=== PATIENT | male | born 1960 | race Caucasian/White ===

== ENCOUNTER 2023-07-02 11:03 | Emergency (ER) | payer OTHER ==
[2023-07-02] MEDS ORDERED: DIPH,PERTUS(ACELL)TETVAC-LF 0.5 ML VIAL IM ONE (12:02)
[2023-07-02] MEDS ORDERED: VANCOMYCIN IV PER PHARMACY 1 EACH MISC MISCELLANE PRN (12:03)
[2023-07-02] MEDS ORDERED: VANCOMYCIN 2,000 MG in SODIUM CHLORIDE 0.9% 500 ML 500 ML IVPB STA (12:06)
[2023-07-02 12:57] LABS: Basophils % (A) 0 %; Eosinophils # (A) 0.3 k/uL (0-0.7); Eosinophils % (A) 3 %; HCT 46.6 % (39.0-53.0); HGB 15.6 gm/dL (13.0-17.5); Lymphocytes # (A) 1.5 k/uL (1.0-4.8); Lymphocytes % (A) 19 %; MCH 30.4 pg (25.0-35.0); MCHC 33.6 g/dL (31.0-37.0); MCV 90.6 fL (80.0-100.0); Mean Platelet Volume 8.8; Monocytes # (A) 0.6 k/uL (0-1.0); Monocytes % (A) 8 %; Neutrophils # (A) 5.3 k/uL (1.3-7.7); Neutrophils % (A) 68 %; Platelet Count 246 k/uL (150-450); RBC 5.14 m/uL (4.30-5.90); WBC 7.7 k/uL (3.8-10.6)
[2023-07-02 12:58] VITALS: RESP 18
[2023-07-02 13:08] LABS: ALT 25 U/L (4-49); AST 27 U/L (17-59); African American GFR (CKD) >90 (>60 ml/min/1.73 sqM); Albumin 4.3 g/dL (3.5-5.0); Alkaline Phosphatase 96 U/L (38-126); Anion Gap 12 mmol/L; Blood Urea Nitrogen 20 mg/dL (9-20); Calcium 9.4 mg/dL (8.4-10.2); Carbon Dioxide 23 mmol/L (22-30); Chloride 106 mmol/L (98-107); Glucose 158 mg/dL (74-99); Non-African American GFR(CKD) >90 (>60 ml/min/1.73 sqM); Potassium 4.2 mmol/L (3.5-5.1); Sodium 141 mmol/L (137-145); Total Bilirubin 0.4 mg/dL (0.2-1.3); Total Protein 7.2 g/dL (6.3-8.2)
--- NOTE | 2023-07-02 14:21 | CT ---
EXAMINATION TYPE: CT abdomen pelvis w con CT DLP: 2670.40 mGycm, Automated exposure control for dose reduction was used. DATE OF EXAM: 07/02/2023 2:08 PM COMPARISON: None CLINICAL INDICATION:Male, 62 years old with history of eval groin infection, right; Evaluate groin in fection, right TECHNIQUE: Axial CT of the ;CT abdomen pelvis w con;Sagittal and coronal reformats were created on a separate workstation. Contrast used:100 ml mL of Isovue 300 with IV Contrast, (none if empty) Oral contrast used: without Oral Contrast (none if empty) FINDINGS: LOWER CHEST: coronary artery calcifications are mild ABDOMEN LIVER: Diffusely hypoattenuating parenchyma. GALLBLADDER AND BILE DUCTS: Unremarkable. PANCREAS: Unremarkable. SPLEEN: Unremarkable. ADRENAL GLANDS: Unremarkable. KIDNEYS AND URETERS: No evidence of hydronephrosis or renal calculus. The ureters are unremarkable. Indeterminate right renal lesion measuring 14 mm. PELVIS BLADDER: Unremarkable REPRODUCTIVE: Unremarkable. ABDOMEN & PELVIS STOMACH AND BOWEL: No evidence of bowel obstruction. PERITONEUM/RETROPERITONEUM: No evidence of pneumoperitoneum or free fluid. VASCULATURE: No evidence of aortic aneurysm. MUSCULOSKELETAL: No acute osseous abnormalities LYMPH NODES: No gross evidence for lymphadenopathy. SOFT TISSUE/ABDOMINAL WALL: Fat-containing left inguinal canal. There is phlegmonous change within th e right perineum/right scrotum. No subcutaneous gas visualized.. No definitive organizing fluid colle ction. IMPRESSION: 1. Phlegmonous change within the right perineum/right scrotum. No evidence for organizing fluid steve ection at this time. No subcutaneous gas. 2. Indeterminate right renal lesion measuring 14 mm. MRI renal mass protocol recommended for complet e evaluation. 3. Mild Hepatic steatosis
[2023-07-02 15:03] LABS: Appearance,Urine Clear (Clear); Color,Urine Yellow; Glucose,Urine (UA) 3+ (Negative); Protein,Urine Trace (Negative); Specific Gravity,Urine >1.030 (1.001-1.035)
[2023-07-02 15:04] LABS: Bilirubin,Urine Negative (Negative); Blood,Urine Negative (Negative); Ketones,Urine 1+ (Negative); Leukocyte Esterase,Urine Negative (Negative); Nitrite,Urine Negative (Negative); Urobilinogen,Urine <2.0 mg/dL (<2.0)
--- NOTE | 2023-07-02 15:39 | ED ---
General Adult HPI - General Source: patient, RN notes reviewed, old records reviewed Mode of arrival: ambulatory Limitations: no limitations <Kerwin Molina - Last Filed: 07/02/23 15:27> <Pancho Juárez - Last Filed: 07/02/23 16:57> - General Chief complaint: Skin/Abscess/Foreign Body Stated complaint: lump near groin area right side Time Seen by Provider: 07/02/23 11:26 - History of Present Illness Initial comments: Patient is a 62-year-old male with past medical history remarkable for kow-wzmekig-gnpfcyfrd diabetes, CAD, hypertension who presents emergency Department complaining of a sore located in the right groin. It is been draining a purulent discharge. Still some erythema around the site as well. Denies testicular pain. Denies any urethral discharge. His no other systemic signs of infection including denying abdominal pain, nausea, vomiting, fevers, chills, cough. His no other acute complaints at this time. Was sent by his PCP for further evaluation. (Kerwin Molina) - Related Data Home Medications Medication Instructions Recorded Confirmed Atorvastatin [Lipitor] 10 mg PO HS 07/02/23 07/02/23 Benazepril HCl [Lotensin] 40 mg PO DAILY 07/02/23 07/02/23 Dextroamphetamine Sulfate 10 mg PO TID 07/02/23 07/02/23 [Dextroamphetamine Sulfate ER] Omeprazole [PriLOSEC] 20 mg PO DAILY 07/02/23 07/02/23 amLODIPine [Norvasc] 10 mg PO DAILY 07/02/23 07/02/23 metFORMIN HCL [Glucophage] 1,000 mg PO BID 07/02/23 07/02/23 Allergies Allergy/AdvReac Type Severity Reaction Status Date / Time No Known Allergies Allergy Verified 07/02/23 13:46 Review of Systems ROS Other: All systems not noted in ROS Statement are negative. <Kerwin Molina - Last Filed: 07/02/23 15:27> ROS Other: All systems not noted in ROS Statement are negative. <Pancho Juárez - Last Filed: 07/02/23 16:57> ROS Statement: Those systems with pertinent positive or pertinent negative responses have been documented in the HPI. Review of Systems: CONST: Denies fever EYES: Denies blurry vision ENT: Denies nasal congestion C/V: Denies Chest pain RESP: Denies shortness of breath GI: Denies abdominal pain : Denies dysuria SKIN: Sore in right groin with some purulent discharge. MSK: Denies joint pain. NEURO: Denies headache (Kerwin Molina) Past Medical History Past Medical History: Diabetes Mellitus, GERD/Reflux, Hypertension History of Any Multi-Drug Resistant Organisms: None Reported Past Surgical History: Tonsillectomy Smoking Status: Never smoker Past Alcohol Use History: None Reported Past Drug Use History: None Reported <Kerwin Molina - Last Filed: 07/02/23 15:27> General Exam Limitations: no limitations <Kerwin Molina - Last Filed: 07/02/23 15:27> - General Exam Comments Initial Comments: General: Appears in no acute distress. HEAD: Normal with no signs of head trauma. EYES: PERRLA, EOMI, conjunctiva normal, no discharge. ENT: Hearing grossly intact, normal oropharynx. RESPIRATORY: Clear breath sounds bilaterally. No wheezes, rales, or rhonchi. C/V: Regular rate and rhythm. S1 and S2 auscultated, no edema, peripheral pulses 2+ and intact throughout ABD: Abd is soft, nontender, nondistended : Patient has induration along the right inguinal crease with an open wound with purulent discharge. No obvious fluctuance palpated. No testicular tenderness to palpation. No urethral discharge. No crepitus palpated. EXT: Normal range of motion, no obvious deformity SKIN: See above NEURO: Alert and oriented 4. (Kerwin Molina) Course Vital Signs 07/02/23 07/02/23 07/02/23 11:15 12:43 13:41 Temperature 97.9 F Pulse Rate 84 81 71 Respiratory 16 18 18 Rate Blood Pressure 134/82 124/84 112/65 O2 Sat by Pulse 94 L 96 94 L Oximetry 07/02/23 07/02/23 14:00 16:00 Temperature Pulse Rate 77 73 Respiratory 18 18 Rate Blood Pressure 118/76 143/99 O2 Sat by Pulse 96 99 Oximetry Medical Decision Making - Lab Data Result diagrams: 07/02/23 12:02 07/02/23 12:02 <Kerwin Molina - Last Filed: 07/02/23 15:27> - Lab Data Result diagrams: 07/02/23 12:02 07/02/23 12:02 <Pancho Juárez - Last Filed: 07/02/23 16:57> - Medical Decision Making Was pt. sent in by a medical professional or institution (JOHN Salomon, ETIOLOGIST, urgent care, hospital, or correction...) When possible be specific @ -No Did you speak to anyone other than the patient for history (EMS, parent, family, police, friend...)? What history was obtained from this source @ -No Did you review nursing and triage notes (agree or disagree)? Why? @ -I reviewed and agree with nursing and triage notes Were old charts reviewed (outside hosp., previous admission, EMS record, old E KG, old radiological studies, urgent care reports/EKG's, correction records)? Report findings @ -Charts reviewed. Differential Diagnosis (chest pain, altered mental status, abdominal pain women, abdominal pain men, vaginal bleeding, weakness, fever, dyspnea, syncope, headache, dizziness, GI bleed, back pain, seizure, CVA, palpatations, mental health, musculoskeletal)? @ -Cellulitis, abscess, necrotizing infection. This list is not all-inclusive. EKG interpreted by me (3pts min.). @ -None done X-rays interpreted by me (1pt min.). @ -None done CT interpreted by me (1pt min.). @ -CT head reveals phlegmonous changes of the right inguinal crease with extension into the right scrotum. U/S interpreted by me (1pt. min.). @ -None done What testing was considered but not performed or refused? (CT, X-rays, U/S, labs)? Why? @ -None What meds were considered but not given or refused? Why? @ -None Did you discuss the management of the patient with other professionals (professionals i.e. JOHN Salomon, ETIOLOGIST, lab, RT, psych nurse, social worker school, battery starter, teacher, press officer, case packer and sealer)? Give summary @ -Dr. Machuca was paged at [phone]. Was smoking cessation discussed for >3mins.? @ -No Was critical care preformed (if so, how long)? @ -No Were there social determinants of health that impacted care today? How? (Homelessness, low income, unemployed, alcoholism, drug addiction, tra nsportation, low edu. Level, literacy, decrease access to med. care, usp, rehab)? @ -No Was there de-escalation of care discussed even if they declined (Discuss DNR or withdrawal of care, Hospice)? DNR status @ -No What co-morbidities impacted this encounter? (DM, HTN, Smoking, COPD, CAD, Cancer, CVA, ARF, Chemo, Hep., AIDS, mental health diagnosis, sleep apnea, morbid obesity)? @ -None Was patient admitted / discharged? Hospital course, mention meds given and route, prescriptions, significant lab abnormalities, going to OR and other pertinent info. @ -Based on the patient's presentation and physical exam, I'm concerned for possible infection in the right inguinal crease. We will obtain CT as well as infectious labs. Blood cultures and cultures will be obtained. Patient was in agreement this plan. Vital signs within acceptable limits. He'll be symp tomatically treated with empiric dose of vancomycin as well as IV fluids. Patient is up-to-date on tetanus. Patient's laboratory studies are unremarkable including no leukocytosis. Lactic acidosis within normal limits. Culture sent her and are pending. Imaging remarkable for phlegmonous changes in the right inguinal crease with some involvement of the right scrotum. Due to the findings, I did want to speak with urology. They were contacted however I'm still waiting for return call. Notify the patient. He was still receiving the vancomycin. Patient signed out to Dr. Juárez pending discussion with urology. Patient would like to go home if possible. Undiagnosed new problem with uncertain prognosis? @ -No Drug Therapy requiring intensive monitoring for toxicity (Heparin, Nitro, Insulin, Cardizem)? @ -No Were any procedures done? @ -No (Kerwin Molina) Was patient admitted / discharged? Hospital course, mention meds given and route, prescriptions, significant lab abnormalities, going to OR and other pertinent info. @ -[Receive this patient is a sign out. Dr. Clark had come to the department to see another patient and we discussed the case. He saw the patient, prescribed antibiotic, directed the patient in further care and follow-up. Undiagnosed new problem with uncertain prognosis? @ -[No] Drug Therapy requiring intensive monitoring for toxicity (Heparin, Nitro, Insulin, Cardizem)? @ -[No] Were any procedures done? @ -[No] Diagnosis/symptom? @ -Acute scrotal abscess, draining Acute, or Chronic, or Acute on Chronic? @ -[Acute Uncomplicated (without systemic symptoms) or Complicated (systemic symptoms)? @ -[Uncomplicated Side effects of treatment? @ -[No] Exacerbation, Progression, or Severe Exacerbation? @ -[No] Poses a threat to life or bodily function? How? (Chest pain, USA, PA, pneumonia, PE, COPD, DKA, ARF, appy, cholecystitis, CVA, Diverticulitis, Homicidal, Suicidal, threat to staff... and all critical care pts) @ -[Low risk, but patient will follow with urology to ensure improvement (Pancho Juárez) - Lab Data Lab Results 07/02/23 07/02/23 07/02/23 Range/Units 12:02 12:02 12:03 WBC 7.7 (3.8-10.6) k/uL RBC 5.14 (4.30-5.90) m/uL Hgb 15.6 (13.0-17.5) gm/dL Hct 46.6 (39.0-53.0) % MCV 90.6 (80.0-100.0) fL MCH 30.4 (25.0-35.0) pg MCHC 33.6 (31.0-37.0) g/dL RDW 13.0 (11.5-15.5) % Plt Count 246 (150-450) k/uL MPV 8.8 Neutrophils % 68 % Lymphocytes % 19 % Monocytes % 8 % Eosinophils % 3 % Basophils % 0 % Neutrophils # 5.3 (1.3-7.7) k/uL Lymphocytes # 1.5 (1.0-4.8) k/uL Monocytes # 0.6 (0-1.0) k/uL Eosinophils # 0.3 (0-0.7) k/uL Basophils # 0.0 (0-0.2) k/uL Sodium 141 (137-145) mmol/L Potassium 4.2 (3.5-5.1) mmol/L Chloride 106 (98-107) mmol/L Carbon Dioxide 23 (22-30) mmol/L Anion Gap 12 mmol/L BUN 20 (9-20) mg/dL Creatinine 0.65 L (0.66-1.25) mg/dL Est GFR (CKD-EPI)AfAm >90 (>60 ml/min/1.73 sqM) Est GFR (CKD-EPI)NonAf >90 (>60 ml/min/1.73 sqM) Glucose 158 H (74-99) mg/dL Plasma Lactic Acid Iain 1.3 (0.7-2.0) mmol/L Calcium 9.4 (8.4-10.2) mg/dL Total Bilirubin 0.4 (0.2-1.3) mg/dL AST 27 (17-59) U/L ALT 25 (4-49) U/L Alkaline Phosphatase 96 (38-126) U/L Total Protein 7.2 (6.3-8.2) g/dL Albumin 4.3 (3.5-5.0) g/dL Urine Color Urine Appearance (Clear) Urine pH (5.0-8.0) Ur Specific Reese (1.001-1.035) Urine Protein (Negative) Urine Glucose (UA) (Negative) Urine Ketones (Negative) Urine Blood (Negative) Urine Nitrite (Negative) Urine Bilirubin (Negative) Urine Urobilinogen (<2.0) mg/dL Ur Leukocyte Esterase (Negative) 07/02/23 Range/Units 13:35 WBC (3.8-10.6) k/uL RBC (4.30-5.90) m/uL Hgb (13.0-17.5) gm/dL Hct (39.0-53.0) % MCV (80.0-100.0) fL MCH (25.0-35.0) pg MCHC (31.0-37.0) g/dL RDW (11.5-15.5) % Plt Count (150-450) k/uL MPV Neutrophils % % Lymphocytes % % Monocytes % % Eosinophils % % Basophils % % Neutrophils # (1.3-7.7) k/uL Lymphocytes # (1.0-4.8) k/uL Monocytes # (0-1.0) k/uL Eosinophils # (0-0.7) k/uL Basophils # (0-0.2) k/uL Sodium (137-145) mmol/L Potassium (3.5-5.1) mmol/L Chloride (98-107) mmol/L Carbon Dioxide (22-30) mmol/L Anion Gap mmol/L BUN (9-20) mg/dL Creatinine (0.66-1.25) mg/dL Est GFR (CKD-EPI)AfAm (>60 ml/min/1.73 sqM) Est GFR (CKD-EPI)NonAf (>60 ml/min/1.73 sqM) Glucose (74-99) mg/dL Plasma Lactic Acid Iain (0.7-2.0) mmol/L Calcium (8.4-10.2) mg/dL Total Bilirubin (0.2-1.3) mg/dL AST (17-59) U/L ALT (4-49) U/L Alkaline Phosphatase (38-126) U/L Total Protein (6.3-8.2) g/dL Albumin (3.5-5.0) g/dL Urine Color Yellow Urine Appearance Clear (Clear) Urine pH 6.0 (5.0-8.0) Ur Specific Reese >1.030 (1.001-1.035) Urine Protein Trace (Negative) Urine Glucose (UA) 3+ (Negative) Urine Ketones 1+ (Negative) Urine Blood Negative (Negative) Urine Nitrite Negative (Negative) Urine Bilirubin Negative (Negative) Urine Urobilinogen <2.0 (<2.0) mg/dL Ur Leukocyte Esterase Negative (Negative) Disposition <Kerwin Molina - Last Filed: 07/02/23 15:27> Is patient prescribed a controlled substance at d/c from ED?: No <Pancho Juárez - Last Filed: 07/02/23 16:57> Clinical Impression: Abscess of scrotal wall Disposition: HOME SELF-CARE Condition: Good Instructions (If sedation given, give patient instructions): Abscess (ED) Additional Instructions: Take the antibiotic that Dr. Machuca, prescribed for you and follow-up with him in 48 hours as directed. If there is any worsening return to emergency departments. Referrals: [facility],Clinic [Primary Care Provider] - 1-2 days
[2023-07-02 17:49] VITALS: BP 131/91; PULSE 89; TEMP 98.1
--- NOTE | 2023-07-02 18:14 | P.GSCN ---
History of Present Illness Consult date: 07/02/23 History of present illness: 62 yo male, non inulin diabetic presents to the er after one week of right perineal and groin soreness. The perineal area came to a head a spontaneously started draining today. this has never occured before. He denies fever, urinary or bowel issues. His wbc is normal. He is afebrile. Review of Systems All systems: negative - Constitutional Denies fever, Denies weight loss - EENT Eyes: denies blurred vision Ears, nose, mouth and throat: Denies dysphagia - Cardiovascular Denies chest pain, Denies shortness of breath - Respiratory Denies cough, Denies 7 - Gastrointestinal Reports as per HPI - Genitourinary Denies dysuria, Denies hematuria - Integumentary Denies rash, Denies unusual bruising - Neurological Denies headaches, Denies syncope - Hematologic/Lymphatic Denies easy bleeding, Denies easy bruising Past Medical History Past Medical History: Diabetes Mellitus, GERD/Reflux, Hypertension History of Any Multi-Drug Resistant Organisms: None Reported Past Surgical History: Tonsillectomy Smoking Status: Never smoker Past Alcohol Use History: None Reported Past Drug Use History: None Reported Medications and Allergies Home Medications Medication Instructions Recorded Confirmed Type Atorvastatin [Lipitor] 10 mg PO HS 07/02/23 07/02/23 History Benazepril HCl [Lotensin] 40 mg PO DAILY 07/02/23 07/02/23 History Dextroamphetamine Sulfate 10 mg PO TID 07/02/23 07/02/23 History [Dextroamphetamine Sulfate ER] Omeprazole [PriLOSEC] 20 mg PO DAILY 07/02/23 07/02/23 History amLODIPine [Norvasc] 10 mg PO DAILY 07/02/23 07/02/23 History metFORMIN HCL [Glucophage] 1,000 mg PO BID 07/02/23 07/02/23 History Allergies Allergy/AdvReac Type Severity Reaction Status Date / Time No Known Allergies Allergy Verified 07/02/23 13:46 Surgical - Exam Vital Signs Temp Pulse Resp BP Pulse Ox 97.9 F 84 16 134/82 94 L 07/02/23 11:15 07/02/23 11:15 07/02/23 11:15 07/02/23 11:15 07/02/23 11:15 - General obese - Genitourinary right groin induration. Small draining wound in perineum without any obvious remaining abscess cavity Results - Labs 07/02/23 12:02 07/02/23 12:02 Abnormal Lab Results - Last 24 Hours (Table) 07/02/23 Range/Units 12:02 Creatinine 0.65 L (0.66-1.25) mg/dL Glucose 158 H (74-99) mg/dL Diabetes panel 07/02/23 Range/Units 12:02 Sodium 141 (137-145) mmol/L Potassium 4.2 (3.5-5.1) mmol/L Chloride 106 (98-107) mmol/L Carbon Dioxide 23 (22-30) mmol/L BUN 20 (9-20) mg/dL Creatinine 0.65 L (0.66-1.25) mg/dL Glucose 158 H (74-99) mg/dL Calcium 9.4 (8.4-10.2) mg/dL AST 27 (17-59) U/L ALT 25 (4-49) U/L Alkaline Phosphatase 96 (38-126) U/L Total Protein 7.2 (6.3-8.2) g/dL Albumin 4.3 (3.5-5.0) g/dL Calcium panel 07/02/23 Range/Units 12:02 Calcium 9.4 (8.4-10.2) mg/dL Albumin 4.3 (3.5-5.0) g/dL Pituitary panel 07/02/23 Range/Units 12:02 Sodium 141 (137-145) mmol/L Potassium 4.2 (3.5-5.1) mmol/L Chloride 106 (98-107) mmol/L Carbon Dioxide 23 (22-30) mmol/L BUN 20 (9-20) mg/dL Creatinine 0.65 L (0.66-1.25) mg/dL Glucose 158 H (74-99) mg/dL Calcium 9.4 (8.4-10.2) mg/dL Adrenal panel 07/02/23 Range/Units 12:02 Sodium 141 (137-145) mmol/L Potassium 4.2 (3.5-5.1) mmol/L Chloride 106 (98-107) mmol/L Carbon Dioxide 23 (22-30) mmol/L BUN 20 (9-20) mg/dL Creatinine 0.65 L (0.66-1.25) mg/dL Glucose 158 H (74-99) mg/dL Calcium 9.4 (8.4-10.2) mg/dL Total Bilirubin 0.4 (0.2-1.3) mg/dL AST 27 (17-59) U/L ALT 25 (4-49) U/L Alkaline Phosphatase 96 (38-126) U/L Total Protein 7.2 (6.3-8.2) g/dL Albumin 4.3 (3.5-5.0) g/dL - Imaging CT scan - abdomen: report reviewed, image reviewed CT scan - pelvis: report reviewed, image reviewed Assessment and Plan Assessment: Impression: perineal and inguinal cellulitis with spontaneously drained abscess.. DM HTN Plan: The patient can be treated as an op with augmentin 875/125 bid. The wound has been cultured. He will sitz bathe bid with epsom salts I will see him in the office in 48 hours. Time with Patient: Greater than 30
[2023-07-02] MEDS ORDERED: VANCOMYCIN 2,000 MG in SODIUM CHLORIDE 0.9% 500 ML 500 ML IVPB SCH (21:00)
[2023-07-03] MEDS ORDERED: VANCOMYCIN TROUGH DUE 1 EACH MISC MISCELLANE ONE (20:00)
== END 2023-07-02 17:36 | disposition home or self-care (01) ==
LOC: EC 11:03
DX: N45.4 Abscess of epididymis or testis (principal); L02.214 Cutaneous abscess of groin; L02.215 Cutaneous abscess of perineum; I10 Essential (primary) hypertension; E11.9 Type 2 diabetes mellitus without complications; K21.9 Gastro-esophageal reflux disease without esophagitis; Z79.84 Long term (current) use of oral hypoglycemic drugs; Z79.899 Other long term (current) drug therapy
CPT/HCPCS: 36415; 80053; 83605; 85025; 81003; 87040; 87070; 87205; 87075; 74177; 99284; 96365; 96366 ×4; J3370; Q9967

== ENCOUNTER 2024-04-24 19:03 | Emergency (ER) | payer OTHER ==
[2024-04-24] MEDS ORDERED: HYDROmorphone 0.5 MG/0.5 ML SYRINGE ONE (20:52)
[2024-04-24] MEDS ORDERED: CYCLOBENZAPRINE 10 MG TAB ONE (20:54)
[2024-04-24] MEDS ORDERED: ACET/COD 300 MG/30 MG STARTER PACK 6 TAB BTL PO ONE (21:52)
== END 2024-04-24 22:08 | disposition home or self-care (01) ==
LOC: EC 19:03
DX: M62.830 Muscle spasm of back (principal)
CPT/HCPCS: 96372; 99283